=== PATIENT | female | born 1975 ===

== ENCOUNTER 2017-08-13 08:42 | Day surgery (SDC) | payer BC ==
[~2017-08-13] VITALS: Ht 162.6 cm; Wt 90.4 kg
== END 2017-08-13 11:15 | disposition home or self-care (01) ==
LOC: ORSCSDS 08:42
PROVIDERS: Obstetrics & Gynecology
PROC: 0U5B8ZZ Destruction of Endometrium, Via Natural or Artificial Opening Endoscopic (ICD-10-PCS; principal; 2017-08-13 10:00)
DX: N92.0 Excessive and frequent menstruation with regular cycle (principal); E66.9 Obesity, unspecified; Z68.34 Body mass index [BMI] 34.0-34.9, adult
CPT/HCPCS: 88305; J1100; J1885; J2250; J2405; J3010; J7120

== ENCOUNTER → 2022-04-22 | Outpatient (CLI) | payer BC | LOC: LAB SHORT 11:32 → LAB 11:32 | DX: D22.62 Melanocytic nevi of left upper limb, including shoulder (principal); D22.39 Melanocytic nevi of other parts of face; D23.39 Other benign neoplasm of skin of other parts of face | CPT/HCPCS: 88305 ==